=== PATIENT | female | born 2000 | race African-American/Black ===

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

== ENCOUNTER 2022-04-28 21:28 | Emergency (ER) | payer OTHER ==
[2022-04-28 21:46] LABS: Bilirubin Negative (Negative); Blood, Urine Negative (Negative); Clarity Clear (Clear); Glucose, Urine (Dipstick) Negative (Negative); Ketone, Urine Negative (Negative); Leukocyte Small (Negative); Nitrite Negative (Negative); Protein, Urine (Dipstick) Negative (Neg-Trace); Specific Gravity, Urine 1.025 (1.005-1.030); Urobilinogen 0.2 mg/dL (Less than 2)
[2022-04-28 21:53] LABS: Bacteria/HPF None Seen HPF (None Seen); Pregnancy Test - Urine (BHCG) Negative (Negative); RBC/HPF None Seen HPF (0-3); Squamous Epithelial 0-3 HPF (0-3); Trichomonas/HPF 1+ HPF (None Seen)
[2022-04-28 21:54] LABS: Pregu Control Background? CLEAR/WHITE (CLR/WHITE); Pregu Control Bar Appear? YES (CONTROL BAR); Specific Gravity 1.025 (1.002-1.036)
[2022-04-28 22:21] LABS: #Eosinphils 0.2 thou/uL (0.0-0.7); #Lymphocytes 1.9 thou/uL (1.20-3.40); #Monocytes 0.4 thou/uL (0.11-0.59); #Neutrophils 6.2 thou/uL (1.40-6.50); %Basophils 0.6 % (0.0-1.0); %Eosinophils 1.9 % (0.0-10.0); %Lymphocytes 21.5 % (21.0-51.0); %Neutrophils 71.1 % (42.0-75.0); Hemoglobin 13.3 g/dL (12.0-16.0); Mean Corpuscular HGB CONC 33.5 g/dL (32.0-36.0); Mean Corpuscular Hemoglobin 30.4 pg (27.0-31.0); Mean Corpuscular Volume 90.8 fl (78.0-98.0); Mean Platelet Volume 7.3 fL (7.4-10.4); Platelet Count 259 10x3/uL (130-400); RBC Distribution Width 11.4 % (11.5-14.5); Red Blood Cell (RBC) Count 4.36 mill/uL (4.20-5.40); White Blood Cell (WBC) Count 8.8 10x3/uL (4.8-10.8)
[2022-04-28] MEDS ORDERED: metroNIDAZOLE 500 MG TAB ONE (22:28)
[2022-04-28 22:38] LABS: ALT (SGPT) 19 U/L (8-55); AST (SGOT) 17 U/L (5-34); Albumin 3.5 g/dL (3.5-5.0); Alkaline Phosphatase 55 U/L (40-110); Anion Gap 9 mmol/L (10-20); BUN (Urea Nitrogen) 10 mg/dL (7.0-18.7); Bilirubin, Total 0.3 mg/dL (0.2-1.2); Calc. Creatinine Clearance 0 mL/min (70-130); Calcium 8.6 mg/dL (7.8-10.44); Carbon Dioxide 25 mmol/L (22-29); Chloride 107 mmol/L (98-107); Estimated GFR 107; Globulin 2.1 g/dL (2.4-3.5); Glucose 101 mg/dL (70-105); Lipase 22 U/L (8-78); Potassium 3.9 mmol/L (3.5-5.1); Protein, Total 5.6 g/dL (6.0-8.3); Sodium 137 mmol/L (136-145)
== END 2022-04-28 22:45 | disposition left against medical advice (07) ==
LOC: NAV ERS 21:28
DX: R19.7 Diarrhea, unspecified (principal)
CPT/HCPCS: 80053; 81003; 81015; 81025; 83690; 85025; 99284

== ENCOUNTER 2022-05-27 09:00 | Emergency (ER) | payer OTHER | END 2022-05-27 09:50 | disposition home or self-care (01) | LOC: NAV ERS 09:00 | DX: A08.4 Viral intestinal infection, unspecified (principal) | CPT/HCPCS: 99283 ==

== ENCOUNTER 2023-07-15 09:46 | Emergency (ER) | payer OTHER | END 2023-07-15 10:03 | disposition home or self-care (01) | LOC: NAV ERS 09:46 | DX: R19.7 Diarrhea, unspecified (principal) | CPT/HCPCS: 99283 ==

== ENCOUNTER 2024-07-15 10:29 | Emergency (ER) | payer SELFPAY | END 2024-07-15 10:44 | disposition home or self-care (01) | LOC: NAV ERS 10:29 | DX: J02.9 Acute pharyngitis, unspecified (principal); F17.210 Nicotine dependence, cigarettes, uncomplicated | CPT/HCPCS: 99283 ==